=== PATIENT | male | born 1995 | race Caucasian/White ===

== ENCOUNTER 2019-02-19 22:57 | Inpatient (IN) | payer MEDICAID ==
[~2019-02-19] VITALS: Ht 165.1 cm; Wt 52.0 kg
[2019-02-19] MEDS ORDERED: ONDANSETRON 4 MG INJ IV STA (23:07)
[2019-02-19] MEDS ORDERED: SODIUM CHLORIDE 0.9% 1L BAG IV* STA (23:07)
[2019-02-19] MEDS ORDERED: morphine 4 MG/ML VIAL IV STA (23:07)
[2019-02-19] MEDS ORDERED: ACETAMINOPHEN 325 MG TAB PO STA (23:07)
--- NOTE | 2019-02-19 23:26 | ERD ---
ER Documentation Chief Complaint Chief Complaint ABD PAIN WITH N/V/D, DEHYDRATION, HX OF CROHNS HPI This is a 24-year-old male with a past medical history of Crohn's disease, esophagitis who is presenting with exacerbated nausea, nonbilious nonbloody vomiting and loose watery brown nonbloody diarrhea. The patient was reportedly discharged from [facility] 5 days ago for a Crohn's flare. However, the patient's symptoms have persisted. The patient does not endorse any alleviating or exacerbating factors. The patient had previously been on opiates and benzodiazepines to help with symptom control. However, he does not have these medications at home at this time. The patient is very anxious and feels unwell. He does endorse a fever. The patient reports feeling very dehydrated. The patient endorses full body aches and cramping as well. The patient has had no headache or vision changes. The patient does not endorse neck or back pain. The patient denies lightheadedness or dizziness. The patient has had no chest pain or trouble breathing. The patient has had no focal deficits. The patient has had no weakness or numbness or tingling to the face or extremities. ROS All systems reviewed and are negative except as per history of present illness. Allergies Allergies: Coded Allergies: No Known Allergy (Unverified , 02/20/19) PMhx/Soc History of Surgery: No Hx Neurological Disorder: No Hx Respiratory Disorders: No Hx Cardiac Disorders: No Hx Psychiatric Problems: No Hx Miscellaneous Medical Probl: Yes (Crohn's disease) Hx Alcohol Use: No Hx Substance Use: No Hx Tobacco Use: No FmHx Family History: No diabetes Physical Exam Vitals Vital Signs Date Temp Pulse Resp B/P (MAP) Pulse Ox O2 O2 Flow FiO2 Time Delivery Rate 02/20/19 91 22 116/77 100 Room Air 00:13 (90) 02/19/19 101.4 100 22 116/68 98 23:01 (84) Physical Exam Const: No apparent distress, well-developed, well-nourished Head: Normocephalic, Atraumatic Eyes: Normal Conjunctiva. Extraocular movements intact. Pupils equal, round and reactive to light ENT: Normal External Ears, Nose and Mouth. Neck: Full range of motion. No meningismus. Resp: Clear to auscultation bilaterally, No wheezes, rales or rhonchi Cardio: Regular rhythm. Mild tachycardia. No murmurs, rubs or gallops Abd: Soft, non distended. Mild generalized tenderness. Voluntary guarding. No rebound. Normal bowel sounds Skin: No petechiae or rashes Back: No midline tenderness. No CVA tenderness Ext: No cyanosis, or edema Neur: Awake and alert, oriented 4. Cranial nerves intact. No facial droop. Normal strength, sensation and coordination. Psych: Normal Mood and Affect Result Diagram: 02/19/19231202/19/192312 Results 24 hrs Laboratory Tests Test 02/19/19 23:13 02/19/19 23:22 02/20/19 00:37 White Blood Count 21.5 10^3/ul Red Blood Count 4.60 10^6/ul Hemoglobin 14.9 g/dl Hematocrit 41.8 % Mean Corpuscular Volume 90.9 fl Mean Corpuscular Hemoglobin 32.4 pg Mean Corpuscular 35.6 g/dl Hemoglobin Concent Red Cell Distribution Width 13.4 % Platelet Count 224 10^3/UL Mean Platelet Volume 8.3 fl Immature Granulocytes % 0.600 % Neutrophils % 88.2 % Lymphocytes % 4.8 % Monocytes % 6.3 % Eosinophils % 0.0 % Basophils % 0.1 % Nucleated Red Blood Cells % 0.0 /100WBC Immature Granulocytes # 0.120 10^3/ul Neutrophils # 18.9 10^3/ul Lymphocytes # 1.0 10^3/ul Monocytes # 1.4 10^3/ul Eosinophils # 0.0 10^3/ul Basophils # 0.0 10^3/ul Nucleated Red Blood Cells # 0.0 10^3/ul Prothrombin Time 14.6 Sec Prothrombin Time Ratio 1.1 INR International Normalized Ratio 1.13 Activated Partial Thromboplast 40.4 Sec Time Sodium Level 136 mmol/L Potassium Level 4.2 mmol/L Chloride Level 90 mmol/L Carbon Dioxide Level 29 mmol/L Anion Gap 17 Blood Urea Nitrogen 26 mg/dl Creatinine 1.15 mg/dl Est Glomerular Filtrat Rate mL/min > 60 mL/min Glucose Level 104 mg/dl Calcium Level 10.2 mg/dl Total Bilirubin 2.2 mg/dl Direct Bilirubin 0.00 mg/dl Indirect Bilirubin 2.2 mg/dl Aspartate Amino Transf (AST/SGOT) 21 IU/L Alanine 7 IU/L Aminotransferase (ALT/SGPT) Alkaline Phosphatase 92 IU/L Troponin I < 0.012 ng/ml Total Protein 8.0 g/dl Albumin 4.6 g/dl Globulin 3.40 g/dl Albumin/Globulin Ratio 1.35 POC Venous Lactate 2.5 mmol/L 1.6 mmol/L Current Medications Medications Dose Sig/Damion Start Time Status Last (Trade) Ordered Route PRN Stop Time Admin Dose Reason Admin Sodium 1,500 ml BOLUS OVER 2 02/19/19 DC 02/19/19 Chloride HOURS STAT 23:07 23:28 (NS) IV* 02/19/19 23:08 650 mg ONCE STAT 02/19/19 DC 02/19/19 Acetaminophen PO 23:07 23:28 (Tylenol 02/19/19 23:08 Tab) Morphine 4 mg ONCE STAT 02/19/19 DC 02/19/19 Sulfate IV 23:07 23:28 (morphine) 02/19/19 23:08 Ondansetron 4 mg ONCE STAT 02/19/19 DC 02/19/19 HCl (Zofran IV 23:07 23:28 Inj) 02/19/19 23:08 Piperacillin 100 ml @ ONCE ONCE 02/20/19 DC 02/20/19 Sod/ 200 mls/hr IVPB 00:30 00:40 Tazobactam 02/20/19 00:59 Sod Vancomycin 250 ml @ ONCE ONCE 02/20/19 02/20/19 HCl 125 mls/hr IVPB 00:30 00:57 02/20/19 02:29 Ondansetron 4 mg BRIDGE ORDER 02/20/19 HCl (Zofran PRN IV 00:30 Inj) NAUSEA/VOMITI 02/21/19 00:29 NG 650 mg ER BRIDGE 02/20/19 Acetaminophen PRN PO 00:30 (Tylenol .MILD PAIN 02/21/19 00:29 Tab) 1-3 OR TEMP Procedures/MDM MDM The patient's presentation warrants further investigation. Previous medical records, if available, were reviewed. LABS The patient's laboratory testing was obtained and reviewed. No emergent treatment was required unless described below. CBC: Significant leukocytosis with shift, concerning for a systemic infection. No E/o anemia or thrombocytopenia Chemistry: No E/o severe acidosis or alkalosis or renal failure or liver disease or diabetic ketoacidosis. Elevated BUN, concerning for dehydration. Elevated indirect bilirubin, likely mild hemolysis. No evidence of obstructive cholestatic disease. PT/INR: No E/o significant coagulopathy Lactate: E/o severe sepsis Troponin: No E/o acute ischemia EKG EKG read by me: Rate/Rhythm: Sinus tachycardia at 101 bpm. Intervals: Normal [place]: Normal Impression: No evidence of acute ischemia. Sinus tachycardia IMAGING Imaging and Radiology interpretation reviewed. CXR 1V Interpreted by me Soft Tissue: No acute abnormalities Bones: No acute abnormalities Mediastinum/Cardiac Silhouette: Unremarkable. No widened mediastinum. Lungs: No acute abnormalities. Normal pulmonary vasculature. No pneumothorax. No pulmonary edema. Clear costal diaphragmatic angles. No pleural effusions. No opacity or consolidations concerning for pneumonia. TREATMENT/DISPOSITION The patient presents for persistent nausea, vomiting and diarrhea. The patient is febrile and tachycardic. He does meet criteria for a systemic inflammatory response. A septic work-up was completed. The patient does have a lactic acidosis, meeting criteria for severe sepsis. I do suspect intra-abdominal pathology related to his Crohn's disease. The patient was given a sepsis bolus of IV fluids. He was started on antibiotics in the emergency department. The patient was also concerned about cramping. He has had previous electrolyte abnormalities that have required treatment. I do not see any emergent electrolyte abnormality at this time. SEPSIS NOTE SIRS Criteria: Fever, tachycardia Infectious source: Intra-abdominal End organ damage indicated by: Lactate > 2.0 mmol/L SEPSIS MANAGEMENT Time to recognize sepsis: 11:30 PM Time to recognize severe sepsis: 11:30 PM. Time to recognize septic shock: No septic shock at this time. 3 HOUR BUNDLE Blood cultures x 2 before abx: Yes 30 ml/kg NS bolus completed Initial lactate 2.5 Repeat lactate 1.6 SEPTIC SHOCK ASSESSMENT: NO lactic acid > 4.0 NO persistent hypotension (SBP < 90 or 40 mmHg drop, MAP < 65) despite 30 L/kg IV fluid bolus CRITICAL CARE Critical care time 35 minutes Emergent fluid management while maintaining close respiratory support. Provision of immediate and broad-spectrum antibiotic therapy. Simultaneous assessment for possible sources in order to direct targeted therapy. Consideration for invasive and chemical support to prevent cardiopulmonary collapse. Critical care time is independent of procedures performed. ADMISSION The patient will be admitted to panel in accordance with the patient's insurance. The patient was accepted by Dr. Byers at 12:17AM on February 20, 2019. Disclaimer: Inadvertent spelling and grammatical errors are likely due to EHR/dictation software use and do not reflect on the overall quality of patient care. Note that the electronic time recorded on this note does not necessarily reflect the actual time of the patient encounter. Departure Diagnosis: Primary Impression: Severe sepsis Additional Impressions: Crohn's colitis Digestive disease complication type: unspecified complication Qualified Codes: K50.119 - Crohn's disease of large intestine with unspecified complications Fever Fever type: unspecified Qualified Codes: R50.9 - Fever, unspecified Tachycardia Lactic acidosis Elevated BUN Dehydration Indirect hyperbilirubinemia Leukocytosis Leukocytosis type: unspecified Qualified Codes: D72.829 - Elevated white blood cell count, unspecified Condition: Serious ROMAN DE SOUZA MD Feb 19, 2019 23:26
[2019-02-20] MEDS ORDERED: VANCOMYCIN 1 GM (PMX) 250 ML IVPB ONE (00:30)
[2019-02-20] MEDS ORDERED: ONDANSETRON 4 MG INJ IV PRN (00:30)
[2019-02-20] MEDS ORDERED: ACETAMINOPHEN 325 MG TAB PO PRN ×2 (00:30→03:00)
[2019-02-20] MEDS ORDERED: PIPER-TAZO 3.375 GM IV (PMX) 100 ML IVPB ONE (00:30)
[2019-02-20] MEDS ORDERED: morphine 4 MG/ML VIAL IV STA (02:25)
[2019-02-20] MEDS ORDERED: ALBUTEROL/IPRATROPIUM (NEB) 3 ML AMP HHN PRN (03:00)
[2019-02-20] MEDS ORDERED: NACL 0.9% 3 ML SYG IV SCH (03:00)
--- NOTE | 2019-02-20 03:22 | HP ---
Date/Time of Note Date/Time of Note DATE: 02/20/19 TIME: 03:17 Assessment/Plan VTE Prophylaxis Pharmacological prophylaxis: heparin Lines/Catheters IV Catheter Type (from Nrs): Peripheral IV Assessment/Plan Assessment/Plan 24-year-old male with a history of Crohn's presented with abdominal pain, nausea, NBNB vomiting and loose nonbloody diarrhea is found to be septic as evidenced by fever and leukocytosis as well as tachycardia. PLAN -Broad-spectrum IV antibiotic -IV fluid -Lactate has trended down -Follow-up UA, urine culture and blood culture results. Chest x-ray without acute findings -Obtain CT abdomen/pelvis given history of Crohn's as well as diarrhea and vomiting -GI consult -Antianxiety meds as needed Result Diagram: 02/19/19 2313 02/19/19 2313 Results 24hrs Laboratory Tests Test 02/19/19 23:13 02/19/19 23:22 02/20/19 00:37 02/20/19 02:30 White Blood Count 21.5 H Red Blood Count 4.60 L Hemoglobin 14.9 Hematocrit 41.8 L Mean Corpuscular 90.9 Volume Mean Corpuscular 32.4 Hemoglobin Mean Corpuscular 35.6 Hemoglobin Concent Red Cell 13.4 Distribution Width Platelet Count 224 Mean Platelet Volume 8.3 Immature 0.600 H Granulocytes % Neutrophils % 88.2 H Lymphocytes % 4.8 L Monocytes % 6.3 Eosinophils % 0.0 Basophils % 0.1 Nucleated Red Blood 0.0 Cells % Immature 0.120 H Granulocytes # Neutrophils # 18.9 H Lymphocytes # 1.0 Monocytes # 1.4 H Eosinophils # 0.0 Basophils # 0.0 Nucleated Red Blood 0.0 Cells # Prothrombin Time 14.6 Prothrombin Time 1.1 Ratio INR International 1.13 Normalized Ratio Activated 40.4 H Partial Thromboplast Time Sodium Level 136 Potassium Level 4.2 Chloride Level 90 L Carbon Dioxide Level 29 Anion Gap 17 H Blood Urea Nitrogen 26 H Creatinine 1.15 Est Glomerular > 60 Filtrat Rate mL/min Glucose Level 104 Calcium Level 10.2 Total Bilirubin 2.2 H Direct Bilirubin 0.00 Indirect Bilirubin 2.2 H Aspartate Amino 21 Transf (AST/SGOT) Alanine 7 L Aminotransferase (AL T/SGPT) Alkaline Phosphatase 92 Troponin I < 0.012 Total Protein 8.0 Albumin 4.6 Globulin 3.40 H Albumin/Globulin 1.35 Ratio POC Venous Lactate 2.5 *H 1.6 0.3 L HPI/ROS Admit Date/Time Admit Date/Time Feb 20, 2019 at 00:21 Hx of Present Illness This is a 24-year-old male with history of Crohn's disease who presents the ER complaining of abdominal pain, nausea/vomiting and diarrhea. Patient also complaining of feeling anxious. He was admitted on [facility] for similar symptoms less than a week ago, which was thought to be secondary to flareup of his Crohn's. His symptoms recurred along with fever and as such he came to the ER for evaluation. When he presented to ER, he was febrile with a temperature of 101.4, tachycardic with a heart rate of 100. WBC 21,000. Chest x-ray without acute cardiopulmonary disease. Patient was started on a broad-spectrum IV antibiotic and was given IV fluids. Initial lactate was elevated, but trended down. PMH/Family/Social Past Medical History Past Surgical Hx: other (See HPI) Family History Significant Family History: no pertinent family hx Social History Alcohol Use: other Smoking Status: Never smoker Drug Use: none Exam/Review of Systems Vital Signs Exam Constitutional: No acute distress. Head: normocephalic, atraumatic Eyes: EOMI, PERRL Respiratory: clear to auscultation, normal air movement Cardiovascular: regular rate and rhythm, nl pulses Gastrointestinal: soft, Extremities: nl pulse Medications Current Medications Ondansetron HCl (Zofran Inj) 4 mg BRIDGE ORDER PRN IV NAUSEA/VOMITING Last administered on 02/20/19at 02:29; Admin Dose 4 MG; Start 02/20/19 at 00:30; Stop 02/21/19 at 00:29 Acetaminophen (Tylenol Tab) 650 mg ER BRIDGE PRN PO .MILD PAIN 1-3 OR TEMP; Start 02/20/19 at 00:30; Stop 02/21/19 at 00:29 Sodium Chloride 1,000 ml @ 125 mls/hr Q8H IV ; Start 02/20/19 at 02:51 IV Flush (NS 3 ml) 3 ml PER PROTOCOL IV ; Start 02/20/19 at 03:00 Ondansetron HCl (Zofran Inj) 4 mg Q6H PRN IV NAUSEA/VOMITING; Start 02/20/19 at 03:00 Acetaminophen (Tylenol Tab) 650 mg Q6H PRN PO .PAIN 1-3 OR TEMP; Start 02/20/19 at 03:00 Heparin Sodium (Porcine) (Heparin (5000 Units/1ml)) 5,000 unit Q12 SC ; Start 02/20/19 at 09:00 Albuterol/ Ipratropium (Duoneb) 3 ml Q2H RESP THERAPY PRN HHN SHORTNESS OF BREATH; Start 02/20/19 at 03:00 Piperacillin Sod/ Tazobactam Sod 100 ml @ 200 mls/hr Q6H IVPB ; Start 02/20/19 at 03:00; Status UNV Vancomycin HCl (Vanco Iv Per Pharmacy) VANCOMYCIN PER PHARMACY PER PROTOCOL XX ; Start 02/20/19 at 09:00 Coded Allergies: No Known Allergy (Unverified , 02/20/19) Social History Smoking Status: Never smoker Exam/Review of Systems Vital Signs Vitals Vital Signs Date Temp Pulse Resp B/P (MAP) Pulse Ox O2 O2 Flow FiO2 Time Delivery Rate 02/20/19 99.1 77 16 117/65 98 Room Air 02:00 (82) Intake and Output 02/19/19 02/19/19 02/20/19 1515:00 23:00 07:00 IntakeIntake Total 1600 ml BalanceBalance 1600 ml RORY KIDD MD Feb 20, 2019 03:22
[2019-02-20 03:41] VITALS: Ht 165.1 cm; Wt 52.0 kg
[2019-02-20 03:56] VITALS: BP 117/66; PULSE 82; RESP 18
[2019-02-20] MEDS: SOD CHLORIDE 0.9% 1,000 ML IV SCH ×3 (04:41→22:22)
[2019-02-20] MEDS: LORAZEPAM 2 MG INJ IV PRN ×3 (05:00→18:13)
[2019-02-20] MEDS: PIPER-TAZO 3.375 GM IV (PMX) 100 ML IVPB SCH ×3 (05:29→17:15)
[2019-02-20 07:41] VITALS: BP 120/61; PULSE 88; RESP 20
[2019-02-20] MEDS ORDERED: VANCOMYCIN IV PER PHARMACY XX SCH (09:00)
[2019-02-20] MEDS: HEPARIN 5,000 UNIT/1 ML VIAL SC SCH ×2 (09:00→21:00)
[2019-02-20] MEDS: VANCOMYCIN 750 MG (PMX) 250 ML IVPB SCH ×2 (09:53→18:12)
--- NOTE | 2019-02-20 11:34 | PN ---
Date/Time of Note Date/Time of Note DATE: 02/20/19 TIME: 11:33 Assessment/Plan VTE Prophylaxis Risk score (from Ns)>0 risk: 1 SCD applied (from Ns): No SCD contraindicated: low risk/ambulating Pharmacological prophylaxis: LMWH Lines/Catheters IV Catheter Type (from [facility]): [place] Assessment/Plan Hospital Course Assessment and plan 1. Sepsis stable continue care 2. Acute C. difficile colitis stable continue care 3. History of Crohn's? Obtain GI consult 4. Abdominal pain colitis, try to avoid narcotics Subjective: Moderate pain. Fever improved Objective: Vital signs stable except fever Physical exam No pallor or icterus adenopathy Regular Clear Bowel sounds diminished mild tender nondistended no RG No edema Result Diagram: 02/20/19 0454 02/20/19 0454 Results 24hrs Laboratory Tests Test 02/19/19 23:13 02/19/19 23:22 02/20/19 00:37 02/20/19 02:30 White Blood Count 21.5 H Red Blood Count 4.60 L Hemoglobin 14.9 Hematocrit 41.8 L Mean Corpuscular 90.9 Volume Mean Corpuscular 32.4 Hemoglobin Mean Corpuscular 35.6 Hemoglobin Concent Red Cell 13.4 Distribution Width Platelet Count 224 Mean Platelet Volume 8.3 Immature 0.600 H Granulocytes % Neutrophils % 88.2 H Lymphocytes % 4.8 L Monocytes % 6.3 Eosinophils % 0.0 Basophils % 0.1 Nucleated Red Blood 0.0 Cells % Immature 0.120 H Granulocytes # Neutrophils # 18.9 H Lymphocytes # 1.0 Monocytes # 1.4 H Eosinophils # 0.0 Basophils # 0.0 Nucleated Red Blood 0.0 Cells # Prothrombin Time 14.6 Prothrombin Time 1.1 Ratio INR International 1.13 Normalized Ratio Activated 40.4 H Partial Thromboplast Time Sodium Level 136 Potassium Level 4.2 Chloride Level 90 L Carbon Dioxide Level 29 Anion Gap 17 H Blood Urea Nitrogen 26 H Creatinine 1.15 Est Glomerular > 60 Filtrat Rate mL/min Glucose Level 104 Calcium Level 10.2 Total Bilirubin 2.2 H Direct Bilirubin 0.00 Indirect Bilirubin 2.2 H Aspartate Amino 21 Transf (AST/SGOT) Alanine 7 L Aminotransferase (AL T/SGPT) Alkaline Phosphatase 92 Troponin I < 0.012 Total Protein 8.0 Albumin 4.6 Globulin 3.40 H Albumin/Globulin 1.35 Ratio POC Venous Lactate 2.5 *H 1.6 0.3 L Test 02/20/19 04:54 02/20/19 06:45 White Blood Count 14.6 #H Red Blood Count 3.44 #L Hemoglobin 11.3 #L Hematocrit 32.2 #L Mean Corpuscular 93.6 Volume Mean Corpuscular 32.8 Hemoglobin Mean Corpuscular 35.1 Hemoglobin Concent Red Cell 13.6 Distribution Width Platelet Count 154 # Mean Platelet Volume 8.6 Immature 0.600 H Granulocytes % Neutrophils % 84.9 H Lymphocytes % 7.7 L Monocytes % 6.6 Eosinophils % 0.0 Basophils % 0.2 Nucleated Red Blood 0.0 Cells % Immature 0.090 H Granulocytes # Neutrophils # 12.4 H Lymphocytes # 1.1 Monocytes # 1.0 H Eosinophils # 0.0 Basophils # 0.0 Nucleated Red Blood 0.0 Cells # Sodium Level 135 Potassium Level 3.7 Chloride Level 100 # Carbon Dioxide Level 26 Anion Gap 9 # Blood Urea Nitrogen 20 Creatinine 0.85 Est Glomerular > 60 Filtrat Rate mL/min Glucose Level 126 Lactic Acid Level 0.8 Calcium Level 8.3 L Total Bilirubin 1.1 Direct Bilirubin 0.00 Indirect Bilirubin 1.1 Aspartate Amino 20 Transf (AST/SGOT) Alanine 17 Aminotransferase (AL T/SGPT) Alkaline Phosphatase 54 Total Protein 5.4 #L Albumin 2.8 #L Globulin 2.60 Albumin/Globulin 1.07 Ratio Urine Color YELLOW Urine Clarity CLEAR Urine pH 7.0 Urine Specific 1.018 [place] Urine Ketones 2+ H Urine Nitrite NEGATIVE Urine Bilirubin NEGATIVE Urine Urobilinogen NEGATIVE Urine Leukocyte NEGATIVE Esterase Urine Microscopic 5 RBC Urine Microscopic 1 WBC Urine Hemoglobin NEGATIVE Urine Glucose NEGATIVE Urine Total Protein 1+ H Exam/Review of Systems Exam Vitals Vital Signs Date Temp Pulse Resp B/P (MAP) Pulse Ox O2 O2 Flow FiO2 Time Delivery Rate 02/20/19 97.4 88 20 120/61 97 07:41 (80) 02/20/19 Room Air 03:56 Intake and Output 02/19/19 02/19/19 02/20/19 1515:00 23:00 07:00 IntakeIntake Total 1820 ml BalanceBalance 1820 ml Results Results 24hrs Laboratory Tests Test 02/19/19 23:13 02/19/19 23:22 02/20/19 00:37 02/20/19 02:30 White Blood Count 21.5 H Red Blood Count 4.60 L Hemoglobin 14.9 Hematocrit 41.8 L Mean Corpuscular 90.9 Volume Mean Corpuscular 32.4 Hemoglobin Mean Corpuscular 35.6 Hemoglobin Concent Red Cell 13.4 Distribution Width Platelet Count 224 Mean Platelet Volume 8.3 Immature 0.600 H Granulocytes % Neutrophils % 88.2 H Lymphocytes % 4.8 L Monocytes % 6.3 Eosinophils % 0.0 Basophils % 0.1 Nucleated Red Blood 0.0 Cells % Immature 0.120 H Granulocytes # Neutrophils # 18.9 H Lymphocytes # 1.0 Monocytes # 1.4 H Eosinophils # 0.0 Basophils # 0.0 Nucleated Red Blood 0.0 Cells # Prothrombin Time 14.6 Prothrombin Time 1.1 Ratio INR International 1.13 Normalized Ratio Activated 40.4 H Partial Thromboplast Time Sodium Level 136 Potassium Level 4.2 Chloride Level 90 L Carbon Dioxide Level 29 Anion Gap 17 H Blood Urea Nitrogen 26 H Creatinine 1.15 Est Glomerular > 60 Filtrat Rate mL/min Glucose Level 104 Calcium Level 10.2 Total Bilirubin 2.2 H Direct Bilirubin 0.00 Indirect Bilirubin 2.2 H Aspartate Amino 21 Transf (AST/SGOT) Alanine 7 L Aminotransferase (AL T/SGPT) Alkaline Phosphatase 92 Troponin I < 0.012 Total Protein 8.0 Albumin 4.6 Globulin 3.40 H Albumin/Globulin 1.35 Ratio POC Venous Lactate 2.5 *H 1.6 0.3 L Test 02/20/19 04:54 02/20/19 06:45 White Blood Count 14.6 #H Red Blood Count 3.44 #L Hemoglobin 11.3 #L Hematocrit 32.2 #L Mean Corpuscular 93.6 Volume Mean Corpuscular 32.8 Hemoglobin Mean Corpuscular 35.1 Hemoglobin Concent Red Cell 13.6 Distribution Width Platelet Count 154 # Mean Platelet Volume 8.6 Immature 0.600 H Granulocytes % Neutrophils % 84.9 H Lymphocytes % 7.7 L Monocytes % 6.6 Eosinophils % 0.0 Basophils % 0.2 Nucleated Red Blood 0.0 Cells % Immature 0.090 H Granulocytes # Neutrophils # 12.4 H Lymphocytes # 1.1 Monocytes # 1.0 H Eosinophils # 0.0 Basophils # 0.0 Nucleated Red Blood 0.0 Cells # Sodium Level 135 Potassium Level 3.7 Chloride Level 100 # Carbon Dioxide Level 26 Anion Gap 9 # Blood Urea Nitrogen 20 Creatinine 0.85 Est Glomerular > 60 Filtrat Rate mL/min Glucose Level 126 Lactic Acid Level 0.8 Calcium Level 8.3 L Total Bilirubin 1.1 Direct Bilirubin 0.00 Indirect Bilirubin 1.1 Aspartate Amino 20 Transf (AST/SGOT) Alanine 17 Aminotransferase (AL T/SGPT) Alkaline Phosphatase 54 Total Protein 5.4 #L Albumin 2.8 #L Globulin 2.60 Albumin/Globulin 1.07 Ratio Urine Color YELLOW Urine Clarity CLEAR Urine pH 7.0 Urine Specific 1.018 [place] Urine Ketones 2+ H Urine Nitrite NEGATIVE Urine Bilirubin NEGATIVE Urine Urobilinogen NEGATIVE Urine Leukocyte NEGATIVE Esterase Urine Microscopic 5 RBC Urine Microscopic 1 WBC Urine Hemoglobin NEGATIVE Urine Glucose NEGATIVE Urine Total Protein 1+ H Medications Medication Current Medications Ondansetron HCl (Zofran Inj) 4 mg BRIDGE ORDER PRN IV NAUSEA/VOMITING Last administered on 02/20/19at 02:29; Admin Dose 4 MG; Start 02/20/19 at 00:30; Stop 02/21/19 at 00:29 Acetaminophen (Tylenol Tab) 650 mg ER BRIDGE PRN PO .MILD PAIN 1-3 OR TEMP; Start 02/20/19 at 00:30; Stop 02/21/19 at 00:29 Sodium Chloride 1,000 ml @ 125 mls/hr Q8H IV Last administered on 02/20/19at 04:41; Admin Dose 125 MLS/HR; Start 02/20/19 at 02:51 IV Flush (NS 3 ml) 3 ml PER PROTOCOL IV ; Start 02/20/19 at 03:00 Ondansetron HCl (Zofran Inj) 4 mg Q6H PRN IV NAUSEA/VOMITING; Start 02/20/19 at 03:00 Acetaminophen (Tylenol Tab) 650 mg Q6H PRN PO .PAIN 1-3 OR TEMP; Start 02/20/19 at 03:00 Heparin Sodium (Porcine) (Heparin (5000 Units/1ml)) 5,000 unit Q12 SC ; Start 02/20/19 at 09:00 Albuterol/ Ipratropium (Duoneb) 3 ml Q2H RESP THERAPY PRN HHN SHORTNESS OF BREATH; Start 02/20/19 at 03:00 Piperacillin Sod/ Tazobactam Sod 100 ml @ 200 mls/hr Q6 IVPB Last administered on 02/20/19at 05:29; Admin Dose 200 MLS/HR; Start 02/20/19 at 06:00 Vancomycin HCl (Vanco Iv Per Pharmacy) VANCOMYCIN PER PHARMACY PER PROTOCOL XX ; Start 02/20/19 at 09:00 Lorazepam (Ativan) 1 mg Q6H PRN IV ANXIETY Last administered on 02/20/19at 05:00; Admin Dose 1 MG; Start 02/20/19 at 03:30 Vancomycin/Sodium Chloride 250 ml @ 125 mls/hr Q8H IVPB Last administered on 02/20/19at 09:53; Admin Dose 125 MLS/HR; Start 02/20/19 at 10:00 Miscellaneous Information (*Rx Drug Level Order Reminder*) VANCOMYCIN TROUGH AT 0100 0100 ONCE XX ; Start 02/21/19 at 01:00; Stop 02/21/19 at 01:01 DELONTE FLORES MD Feb 20, 2019 11:34
[2019-02-20] MEDS: LORAZEPAM 0.5 MG TAB PO SCH ×2 (12:00→22:21)
[2019-02-20] MEDS: KETOROLAC 30 MG INJ IV SCH ×2 (12:00→17:15)
[2019-02-20] MEDS ORDERED: VANCOMYCIN 500 MG (PMX) 100 ML IVPB SCH (12:00)
[2019-02-20] MEDS ORDERED: morphine 4 MG/ML VIAL IV PRN (12:00)
[2019-02-20] MEDS: ONDANSETRON 4 MG INJ IV PRN ×2 (12:07→18:13)
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
[2019-02-20] MEDS: FAMOTIDINE 20 MG TAB PO SCH (15:19)
[2019-02-20] MEDS: VANCOMYCIN HCL 250 MG/5ML POSYG PO SCH ×2 (15:19→18:53)
[2019-02-20 15:24] VITALS: BP 111/59; PULSE 86; RESP 20
[2019-02-20 19:28] VITALS: BP 107/59; PULSE 74; RESP 18
[2019-02-21] MEDS: KETOROLAC 30 MG INJ IV SCH ×4 (00:15→18:20)
[2019-02-21] MEDS: PIPER-TAZO 3.375 GM IV (PMX) 100 ML IVPB SCH ×4 (00:15→18:19)
[2019-02-21] MEDS: VANCOMYCIN HCL 250 MG/5ML POSYG PO SCH ×4 (00:15→18:25)
[2019-02-21 02:00] VITALS: BP 103/58; PULSE 66; RESP 18
[2019-02-21] MEDS: VANCOMYCIN 750 MG (PMX) 250 ML IVPB SCH ×3 (02:40→19:02)
[2019-02-21] MEDS: SOD CHLORIDE 0.9% 1,000 ML IV SCH ×3 (04:48→20:37)
[2019-02-21] MEDS: ONDANSETRON 4 MG INJ IV PRN ×3 (06:20→18:20)
[2019-02-21 07:27] VITALS: BP 107/54; PULSE 72; RESP 20
[2019-02-21] MEDS: FAMOTIDINE 20 MG TAB PO SCH (08:25)
[2019-02-21] MEDS: LORAZEPAM 0.5 MG TAB PO SCH ×2 (08:25→20:38)
[2019-02-21] MEDS: HEPARIN 5,000 UNIT/1 ML VIAL SC SCH ×2 (08:36→20:39)
[2019-02-21] MEDS ORDERED: POTASSIUM CHLORIDE 20 MEQ POWDER FOR ORAL SOLN PO SCH (12:00)
[2019-02-21] MEDS: LORAZEPAM 2 MG INJ IV PRN (12:49)
[2019-02-21] MEDS: POTASSIUM CHLORIDE (SR) 20 MEQ TAB PO SCH (12:49)
[2019-02-21 14:03] VITALS: BP 119/69; PULSE 67; RESP 20
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
[2019-02-21 20:02] VITALS: BP 116/60; PULSE 72; RESP 18
[2019-02-22] MEDS: PIPER-TAZO 3.375 GM IV (PMX) 100 ML IVPB SCH ×2 (00:19→05:28)
[2019-02-22] MEDS: VANCOMYCIN HCL 250 MG/5ML POSYG PO SCH ×2 (00:20→05:28)
[2019-02-22] MEDS: KETOROLAC 30 MG INJ IV SCH ×2 (00:20→05:28)
[2019-02-22 01:14] VITALS: BP 103/56; PULSE 65; RESP 18
[2019-02-22] MEDS: VANCOMYCIN 750 MG (PMX) 250 ML IVPB SCH ×2 (02:32→09:37)
[2019-02-22] MEDS: SOD CHLORIDE 0.9% 1,000 ML IV SCH (05:29)
[2019-02-22 07:26] VITALS: BP 118/63; PULSE 61; RESP 20
[2019-02-22] MEDS: HEPARIN 5,000 UNIT/1 ML VIAL SC SCH (09:00)
[2019-02-22] MEDS: POTASSIUM CHLORIDE (SR) 20 MEQ TAB PO SCH (09:35)
[2019-02-22] MEDS: LORAZEPAM 0.5 MG TAB PO SCH (09:36)
[2019-02-22] MEDS: FAMOTIDINE 20 MG TAB PO SCH (09:37)
[2019-02-22] MEDS ORDERED: POTASSIUM CHLORIDE (SR) 20 MEQ TAB PO STA (10:30)
[2019-02-22] MEDS ORDERED: Vancomycin Oral Syringe PO (10:33)
--- NOTE | 2019-02-22 10:39 | PDOCDIS ---
Discharge Instructions CONDITION [id number] Patient Condition: [id number] Stable HOME CARE INSTRUCTIONS: Caoph4Ps Diet Instructions: Kboro9e Regular FOLLOW UP/APPOINTMENTS Follow-up Plan Follow-up with your business operations director as scheduled. OTHER ORDERS: Other Orders: 1. Take a regular diet as tolerated. 2. Resume activities as tolerated. 3. Complete the course of antibiotics. 4. Follow-up with your business operations director as scheduled. 5. Please go to the nearest emergency room if you have significant abdominal pain, persistent diarrhea, persistent fevers, or any other unusual signs/symptoms. ROSHNI OWENS NP Feb 22, 2019 10:39
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
== END 2019-02-22 12:10 | disposition home or self-care (01) | DRG 872 ==
LOC: E/R 22:57 → 2NE 02-20 00:21
PROVIDERS: ADMIT Internal Medicine; ATTEND Internal Medicine
DX: A41.9 Sepsis, unspecified organism (principal); K50.90 Crohn's disease, unspecified, without complications; A04.72 Enterocolitis due to Clostridium difficile, not specified as recurrent; D64.9 Anemia, unspecified
CPT/HCPCS: 36415; 71045; 74018; 74176; 80048; 80053; 80202; 81001; 83036; 83605; 83735; 84100; 84443; 84484; 85025; 85610; 85730; 87045; 87075; 87081; 87086; 93005; 96374; 96375; J1644; J1885; J2060; J2270; J2405; J2543; J3370; J7030